=== PATIENT | male | born 1980 | race African-American/Black ===

== ENCOUNTER → 2016-04-04 | Outpatient (CLI) | payer MEDICAID | LOC: RAD 15:56 | PROVIDERS: ATTEND Internal Medicine Geriatric Medicine | DX: M54.16 Radiculopathy, lumbar region (principal) | CPT/HCPCS: 72100 ==

== ENCOUNTER → 2016-04-17 | Outpatient (CLI) | payer MEDICAID ==
[2016-04-17 08:57] LABS: ABSOLUTE EOSINOPHILS # (AUTO) 0.2 10^3/uL (0.0-0.6); ABSOLUTE LYMPHOCYTES (AUTO) 1.2 10^3/uL (0.5-4.7); ABSOLUTE MONOCYTES (AUTO) 0.5 10^3/uL (0.1-1.4); ABSOLUTE NEUT (AUTO) 4.2 10^3/uL (1.7-8.2); BASOPHILS % (AUTO) 0.6 % (0-2); EOSINOPHILS % (AUTO) 3.3 % (0-6); HEMATOCRIT 42.3 % (37.9-51.0); HEMOGLOBIN 13.6 g/dL (13.5-17.0); HGB HCT DIFFERENCE -1.5; LYMPHOCYTES % (AUTO) 19.1 % (13-45); MEAN CORPUSCULAR HGB CONC 32.1 g/dL (32.0-36.0); MEAN CORPUSCULAR VOLUME 78 fl (80-97); MONOCYTES % (AUTO) 8.8 % (3-13); RED BLOOD COUNT 5.44 10^6/uL (4.35-5.55); RED CELL DISTRIBUTION WIDTH 16.3 % (11.5-14.0); SEGMENTED NEUTROPHILS % (AUTO) 68.2 % (42-78); WHITE BLOOD COUNT 6.2 10^3/uL (4.0-10.5)
[2016-04-17 09:16] LABS: ALANINE AMINOTRANSFERASE 85 U/L (21-72); ALBUMIN 4.2 g/dL (3.5-5.0); ALKALINE PHOSPHATASE 106 U/L (38-126); ANION GAP 19 (5-19); ASPARTATE AMINO TRANSFERASE 42 U/L (17-59); BILIRUBIN,TOTAL 0.5 mg/dL (0.2-1.3); BLOOD UREA NITROGEN 21 mg/dL (7-20); CALCIUM 9.8 mg/dL (8.4-10.2); CARBON DIOXIDE 27 mmol/L (22-30); CHLORIDE 104 mmol/L (98-107); CHOLESTEROL 105.79 mg/dL (0-200); CREATININE RESULT 1.18 mg/dL (0.52-1.25); Direct HDL 40 mg/dL (>40); GLUCOSE 95 mg/dL (75-110); POTASSIUM 3.6 mmol/L (3.6-5.0); SODIUM 149.6 mmol/L (137-145); TOTAL PROTEIN 8.5 g/dL (6.3-8.2); TRIGLYCERIDES 59 mg/dL (<150)
[2016-04-17 09:27] LABS: DIRECT LDL 42 mg/dL (<100)
== END ==
LOC: OD 08:04
PROVIDERS: ATTEND Internal Medicine Geriatric Medicine
DX: M54.16 Radiculopathy, lumbar region (principal); I10 Essential (primary) hypertension
CPT/HCPCS: 36415; 72110; 80053; 80061; 85025

== ENCOUNTER → 2016-04-22 | Outpatient (CLI) | payer MEDICAID | LOC: RAD 15:52 | PROVIDERS: ATTEND Internal Medicine Geriatric Medicine | DX: R10.9 Unspecified abdominal pain (principal) | CPT/HCPCS: 74000 ==

== ENCOUNTER 2016-07-01 08:27 | Emergency (ER) | payer BC, MEDICAID ==
--- NOTE | 2016-07-01 09:32 | ER Document Report ---
ED General - General Mode of Arrival: Ambulatory Information source: Patient TRAVEL OUTSIDE OF THE [place] IN LAST 30 DAYS: No - HPI Patient complains to provider of: Congestion Onset: Other - 06/22/2016 Onset/Duration: Gradual, Persistent Associated symptoms: Productive cough, Fever <MEGHNA MARIE - Last Filed: 07/01/16 09:38> <TITO BORDEN - Last Filed: 07/01/16 11:52> - General Chief Complaint: Congestion Stated Complaint: CONGESTION Notes: Patient is a 35-year-old male presenting to the emergency department chief complaint congestion onset, 06/22/2016. Patient states that he went online to Web and talked to a doctor online, who prescribed him Tamiflu. Patient states that his symptoms began to improve, but 06/27/2016 his symptoms started to worsen again and has persisted. Patient complains of chest congestion, cough , nasal congestion, malaise, and subjective fever. Patient has no other complaints at this time. (MEGHNA MARIE) - Related Data Allergies/Adverse Reactions: amoxicillin [Amoxicillin] Allergy (Verified 07/01/16 08:32) nausea vomit hydralazine Adverse Reaction (Verified 07/01/16 08:32) Past Medical History - General Information source: Patient - Social History Smoking Status: Unknown if Ever Smoked Family History: Reviewed & Not Pertinent, CAD, Hypertension Patient has suicidal ideation: No Patient has homicidal ideation: No - Past Medical History Cardiac Medical History: Reports: Hx Congestive Heart Failure, Hx Hypertension Pulmonary Medical History: Reports: Hx Asthma, Hx COPD Renal/ Medical History: Denies: Hx Peritoneal Dialysis Psychiatric Medical History: Denies: Hx Depression - Immunizations Immunizations up to date: Yes Hx Diphtheria, Pertussis, Tetanus Vaccination: Yes <MEGHNA MARIE - Last Filed: 07/01/16 09:38> Review of Systems - Review of Systems Constitutional: See HPI, Fever - subjective, Malaise EENT: See HPI, Nose congestion Cardiovascular: No symptoms reported Respiratory: See HPI, Cough, Sputum - Thick Yellow, Wheezing Gastrointestinal: No symptoms reported Genitourinary: No symptoms reported Male Genitourinary: No symptoms reported Musculoskeletal: No symptoms reported Skin: No symptoms reported Hematologic/Lymphatic: No symptoms reported Neurological/Psychological: No symptoms reported -: Yes All other systems reviewed and negative <MEGHNA MARIE - Last Filed: 07/01/16 09:38> Physical Exam - General General appearance: Appears well, Alert In distress: None - HEENT Head: Normocephalic, Atraumatic Eyes: Normal Pupils: PERRL Nasal: Other - Congested - Respiratory Respiratory status: No respiratory distress Breath sounds: Productive cough - Thick, yellow sputum, Rhonchi, Wheezing - Cardiovascular Rhythm: Regular Heart sounds: Normal auscultation Murmur: No - Abdominal Inspection: Morbidly Obese Tenderness: Nontender - Back Back: Normal, Nontender - Extremities General upper extremity: Normal inspection, Nontender General lower extremity: Normal inspection, Nontender - Neurological Neuro grossly intact: Yes Cognition: Normal Addison Coma Scale Eye Opening: Spontaneous [place] Coma Scale Verbal: Oriented [place]ison Coma Scale Motor: Obeys Commands Addison Coma Scale Total: 15 Speech: Normal - Psychological Associated symptoms: Normal affect, Normal mood - Skin Skin Temperature: Warm Skin Moisture: Dry Skin Color: Normal <MEGHNA MARIE - Last Filed: 07/01/16 09:38> <TITO BORDEN - Last Filed: 07/01/16 11:52> - Vital signs Vitals: Temp Pulse Resp BP Pulse Ox 99.0 F 87 18 154/100 H 100 07/01/16 08:36 07/01/16 08:36 07/01/16 08:36 07/01/16 08:36 07/01/16 08:36 Course - Diagnostic Test Radiology reviewed: Image reviewed, Reports reviewed - Chest x-ray shows cardiomegaly with no other acute process <TITO BORDEN - Last Filed: 07/01/16 11:52> - Vital Signs Vital signs: Temp Pulse Resp BP Pulse Ox 99.3 F 85 20 163/102 H 96 07/01/16 10:55 07/01/16 10:55 07/01/16 10:55 07/01/16 10:55 07/01/16 10:55 Discharge <MEGHNA MARIE - Last Filed: 07/01/16 09:38> <TITO BORDEN - Last Filed: 07/01/16 11:52> - Discharge Clinical Impression: Asthmatic bronchitis with exacerbation Qualifiers: Asthma severity: unspecified severity Qualified Code(s): J45.901 - Unspecified asthma with (acute) exacerbation Condition: Stable Disposition: HOME, SELF-CARE Additional Instructions: Bronchitis with Bronchospasm (Wheezing): You have bronchitis with bronchospasm (wheezing). Sometimes people develop wheezing with a chest cold. This occurs either because of an underlying tendency toward asthma or because the virus itself irritates the bronchial tubes. This irritation causes cough, shortness of breath, and wheezing. Emergency treatment of bronchospasm may include adrenaline shots or bronchodilator aerosol. You may feel lightheaded and have a rapid pulse for an hour or two. Rest and get plenty of fluids. At home, we'll treat you with a bronchodilator inhaler. Corticosteroids may be required for some patients. Until you recover, avoid chemical fumes, dusts, pollens, and exercising in very cold or dry air. If you smoke, stop now! Most cases of bronchitis get better without antibiotics. We prescribe antibiotics when we believe bacteria are damaging your airways, or if there's high risk the bronchitis will worsen into pneumonia. Increase your fluid intake. A cool mist humidifier may make your lungs more comfortable. An expectorant (cough medicine that loosens phlegm) can help. Repeated episodes of bronchitis and bronchospasm may result in lung damage -- for example, chronic bronchitis, recurrent pneumonias, or emphysema. If you develop a fever, increased wheezing, chest pain, or severe shortness of breath, you should contact the doctor immediately. START THE MEDICATIONS PRESCRIBED ON FRIDAY(tomorrow). DRINK PLENTY OF FLUIDS. TAKE ROBITUSSIN-DM FOR COUGH AND TO LOOSEN MUCUS. REST. FOLLOWUP WITH YOUR DOCTOR IF NOT IMPROVING. RETURN TO THE EMERGENCY ROOM IF ANY NEW OR WORSENING SYMPTOMS. Prescriptions: Azithromycin [Zithromax 250 mg Tablet] 250 mg PO DAILY #4 tablet Prednisone [Deltasone 10 mg Tablet] 10 mg PO ASDIR PRN #21 tablet PRN Reason: Forms: Return to Work Referrals: AGUSTÍN REYNOLDS MD [Primary Care Provider] - Follow up as needed Roxannaibangi Attestation: 07/01/16 11:51 I personally performed the services described in the documentation, reviewed and edited the documentation which was dictated to the scribe in my presence, and it accurately records my words and actions. (TITO BORDEN) Scribe Documentation - Scribe Written by Janice:: Meghna Marie 07/01/2016 0931 acting as scribe for :: Frank <MEGHNA MARIE - Last Filed: 07/01/16 09:38>
[2016-07-01] MEDS ORDERED: IPRATROPIUM/ALBUTEROL 0.5-2.5 MG/3 ML AMPUL NEB ONE (09:39)
[2016-07-01] MEDS ORDERED: PREDNISONE 20 MG TABLET PO ONE (09:39)
[2016-07-01] MEDS ORDERED: AZITHROMYCIN 250 MG TABLET PO ONE (10:42)
[2016-07-01] MEDS ORDERED: ALBUTEROL SULFATE 0.083% NEB 2.5 MG/3 ML AMPUL NEB ONE (10:42)
[2016-07-01 10:57] VITALS: BP 163/102
== END 2016-07-01 12:00 | disposition home or self-care (01) ==
LOC: ER 08:27
DX: J45.901 Unspecified asthma with (acute) exacerbation (principal); R09.81 Nasal congestion; R05 Cough; R53.81 Other malaise; R50.9 Fever, unspecified
CPT/HCPCS: 94640 ×2; 99283; 87070; 87205; 87077; 71020; J7512; J7620

== ENCOUNTER → 2016-09-12 | Outpatient (CLI) | payer BC ==
[2016-09-12 08:37] LABS: ANION GAP 14 (5-19); BLOOD UREA NITROGEN 13 mg/dL (7-20); CALCIUM 9.5 mg/dL (8.4-10.2); CARBON DIOXIDE 28 mmol/L (22-30); CHLORIDE 103 mmol/L (98-107); GLUCOSE 93 mg/dL (75-110); POTASSIUM 3.8 mmol/L (3.6-5.0); SODIUM 145.2 mmol/L (137-145)
== END ==
LOC: OD 07:23
PROVIDERS: ATTEND Internal Medicine Geriatric Medicine
DX: I10 Essential (primary) hypertension (principal)
CPT/HCPCS: 36415; 80048

== ENCOUNTER → 2017-01-13 | Outpatient (CLI) | payer BC ==
[2017-01-13 09:30] LABS: SA NONMOTILE COUNT1 0; SA NONMOTILE COUNT2 0; SA STRAIGHT MOTILITY CNT 1 0; SA STRAIGHT MOTILITY CNT 2 0
[2017-01-13 09:31] LABS: ROUND CELL CONC. 0.2 X10^6/mL (<5.1); SA DILUTION CNT 1 0; SA DILUTION CNT 2 0; SA DILUTION FACTOR 1; SA ROUND CELL COUNT1 1; SA ROUND CELL COUNT2 3
[2017-01-14 06:39] LABS: FOLLICLE STIMULATING HORMONE 9.9 mIU/mL (1.5-12.4); LUTEINIZING HORMONE 7.4 mIU/mL (1.7-8.6)
[2017-01-14 08:12] LABS: PROLACTIN 7.9 ng/mL (4.0-15.2)
[2017-01-15 11:59] LABS: TESTOSTERONE FREE (DIRECT) 3.3 pg/mL (8.7-25.1)
== END ==
LOC: LAB 08:35
PROVIDERS: ATTEND Urology
DX: N46.9 Male infertility, unspecified (principal); N50.0 Atrophy of testis
CPT/HCPCS: 36415; 83001; 83002; 84146; 84402; 84403; 89321

== ENCOUNTER → 2017-02-05 | Outpatient (CLI) | payer BC ==
[2017-02-05 08:31] LABS: ABSOLUTE EOSINOPHILS # (AUTO) 0.2 10^3/uL (0.0-0.6); ABSOLUTE LYMPHOCYTES (AUTO) 1.7 10^3/uL (0.5-4.7); ABSOLUTE MONOCYTES (AUTO) 0.4 10^3/uL (0.1-1.4); ABSOLUTE NEUT (AUTO) 3.9 10^3/uL (1.7-8.2); BASOPHILS % (AUTO) 0.4 % (0-2); EOSINOPHILS % (AUTO) 3.5 % (0-6); HEMATOCRIT 37.8 % (37.9-51.0); HEMOGLOBIN 12.5 g/dL (13.5-17.0); HGB HCT DIFFERENCE -0.3; LYMPHOCYTES % (AUTO) 27.3 % (13-45); MEAN CORPUSCULAR HEMOGLOBIN 26.1 pg (27.0-33.4); MEAN CORPUSCULAR HGB CONC 33.2 g/dL (32.0-36.0); MEAN CORPUSCULAR VOLUME 78 fl (80-97); MONOCYTES % (AUTO) 6.4 % (3-13); RED BLOOD COUNT 4.82 10^6/uL (4.35-5.55); RED CELL DISTRIBUTION WIDTH 16.7 % (11.5-14.0); SEGMENTED NEUTROPHILS % (AUTO) 62.4 % (42-78); WHITE BLOOD COUNT 6.2 10^3/uL (4.0-10.5)
[2017-02-05 08:33] LABS: ANION GAP 14 (5-19); BLOOD UREA NITROGEN 14 mg/dL (7-20); CARBON DIOXIDE 27 mmol/L (22-30); CHLORIDE 105 mmol/L (98-107); CHOLESTEROL 96.08 mg/dL (0-200); CREATININE RESULT 0.98 mg/dL (0.52-1.25); Direct HDL 45 mg/dL (>40); GLUCOSE 95 mg/dL (75-110); POTASSIUM 3.9 mmol/L (3.6-5.0); SODIUM 145.8 mmol/L (137-145); TRIGLYCERIDES 49 mg/dL (<150)
[2017-02-05 08:44] LABS: DIRECT LDL 37 mg/dL (<100)
== END ==
LOC: LAB 08:16
PROVIDERS: ATTEND Internal Medicine Geriatric Medicine
DX: Z00.00 Encounter for general adult medical examination without abnormal findings (principal)
CPT/HCPCS: 36415; 80048; 80061; 85025

== ENCOUNTER 2017-06-12 01:04 | Emergency (ER) | payer BC ==
[2017-06-12] MEDS ORDERED: CLINDAMYCIN HCL 150 MG CAPSULE PO ONE (01:31)
[2017-06-12] MEDS ORDERED: HYDROCODONE/ACETAMINOPHEN 5-325 MG (6 TAB/ER DISP) PO PRN (01:32)
[2017-06-12] MEDS ORDERED: IBUPROFEN 800 MG TABLET PO ONE (01:32)
--- NOTE | 2017-06-12 01:37 | ER Document Report ---
HPI - HPI Patient complains to provider of: Dental pain Pain Level: 5 Context: Patient is a 36 year old male that comes to the ED for chief complaint of dental pain. Pain is in the left lower jaw, pain started yesterday and is worsening. He denies swelling. He states that he was evaluated by dentist, he has a appointment already set up in about 2 weeks to have this repaired, states he was taking antibiotics but ran out and then symptoms returned. He denies difficulty swallowing, neck pain, fever. - CONSTITUTIONAL Constitutional: DENIES: Fever, Chills - EENT EENT: REPORTS: Ear Pain - l ear. DENIES: Sore Throat, Eye problems - NEURO Neurology: REPORTS: Headache. DENIES: Weakness, Vision blurred, Dizzinesss / Vertigo - CARDIOVASCULAR Cardiovascular: DENIES: Chest pain - RESPIRATORY Respiratory: DENIES: Trouble Breathing, Coughing - GASTROINTESTINAL Gastrointestinal: DENIES: Abdominal Pain, Black / Bloody Stools - URINARY Urinary: DENIES: Dysuria, Urgency, Frequency - MUSCULOSKELETAL Musculoskeletal: DENIES: Extremity pain Past Medical History - General Information source: Patient - Social History Smoking Status: Former Smoker Chew tobacco use (# tins/day): No Frequency of alcohol use: None Drug Abuse: None Lives with: Family Family History: Reviewed & Not Pertinent, CAD, Hypertension Patient has suicidal ideation: No Patient has homicidal ideation: No - Past Medical History Cardiac Medical History: Reports: Hx Congestive Heart Failure, Hx Hypertension Pulmonary Medical History: Reports: Hx Asthma, Hx COPD Renal/ Medical History: Denies: Hx Peritoneal Dialysis Psychiatric Medical History: Denies: Hx Depression Surgical Hx: Negative - Immunizations Immunizations up to date: Yes Hx Diphtheria, Pertussis, Tetanus Vaccination: Yes Vertical Provider Document - CONSTITUTIONAL General Appearance: WD/WN, No Apparent Distress - INFECTION CONTROL TRAVEL OUTSIDE OF THE [place] IN LAST 30 DAYS: No - HEENT HEENT: Atraumatic, Normocephalic Mouth Diagram: 1 - Dental fracture, no surrounding swelling, induration, fluctuance, or other abnormality noted - NECK Neck: Normal Inspection - RESPIRATORY Respiratory: Breath Sounds Normal, No Respiratory Distress O2 Sat by Pulse Oximetry: 99 - CARDIOVASCULAR Cardiovascular: Regular Rate, Regular Rhythm - GI/ABDOMEN Gastrointestinal: Abdomen Soft, Abdomen Non-Tender - NEURO Level of Consciousness: Awake, Alert, Appropriate - DERM Integumentary: Warm, Dry, No Rash Course - Re-evaluation Re-evalutation: Patient hypertensive, in pain. Offered him a dental block but he declined. Providing the clindamycin, to go medicine, patient already has good dental follow-up. Discussed return precautions. No evidence of Navarro's angina or abscess at this time. Patient states satisfaction and agreement. - Vital Signs Vital signs: Temp Pulse Resp BP Pulse Ox 98.8 F 88 22 H 178/102 H 99 06/12/17 01:08 06/12/17 01:08 06/12/17 01:08 06/12/17 01:08 06/12/17 01:08 Discharge - Discharge Clinical Impression: Pain, dental Condition: Stable Disposition: HOME, SELF-CARE Additional Instructions: Your examination is consistent with a dental infection. Take antibiotic as prescribed. Follow closely with your dentist for additional evaluation and management or this will continue to happen. Return if you worsen including facial swelling or any other concerning symptoms. Prescriptions: Clindamycin HCl [Cleocin 150 mg Capsule] 150 mg PO Q6 #56 capsule Forms: Elevated Blood Pressure
[2017-06-12 02:04] VITALS: BP 176/98
== END 2017-06-12 02:00 | disposition home or self-care (01) ==
LOC: ER 01:04
DX: K08.89 Other specified disorders of teeth and supporting structures (principal); H92.02 Otalgia, left ear; R51 Headache; I10 Essential (primary) hypertension; J44.9 Chronic obstructive pulmonary disease, unspecified; Z87.891 Personal history of nicotine dependence
CPT/HCPCS: 99282

== ENCOUNTER 2017-06-27 07:10 | Emergency (ER) | payer BC ==
[2017-06-27] MEDS ORDERED: HYDROCODONE/ACETAMINOPHEN 5-325 MG TABLET PO ONE (07:52)
--- NOTE | 2017-06-27 08:45 | RADIOLOGY REPORT (SQ) ---
EXAM DESCRIPTION: SHOULDER RIGHT 2 OR MORE VIEWS COMPLETED DATE/TIME: 06/27/2017 8:13 am REASON FOR STUDY: right shoulder sharp pain, n/t right hand, no inju COMPARISON: None. NUMBER OF VIEWS: Three views. TECHNIQUE: Internal rotation, external rotation, and Y view images acquired of the right shoulder. LIMITATIONS: None. FINDINGS: MINERALIZATION: Normal. BONES: No acute fracture or dislocation. No worrisome bone lesions. JOINTS: No glenohumeral dislocation. No acromioclavicular joint widening or bony spurring VISUALIZED LUNGS AND RIBS: No pneumothorax. No rib fracture. 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 OTHER: No other significant finding. IMPRESSION: NEGATIVE STUDY OF THE RIGHT SHOULDER. NO RADIOGRAPHIC EVIDENCE OF ACUTE INJURY. TECHNICAL DOCUMENTATION: JOB ID: [id number] [employer]- All Rights Reserved Reading location - IP/workstation name: [email or web address]
--- NOTE | 2017-06-27 08:49 | ER Document Report ---
ED Extremity Problem, Upper - General Chief Complaint: Arm Pain Stated Complaint: RIGHT ARM PAIN Time Seen by Provider: 06/27/17 07:44 Mode of Arrival: Ambulatory Information source: Patient Notes: Patient is a 36-year-old male who presents to the ER today for right shoulder pain 2 weeks, patient states that it did get better and then come back again yesterday. Patient describes it as a sharp pain that hurts worse with movement. He denies any injury. He does state that since yesterday he has had some numbness and tingling to his right hand. Patient denies any history of issues with the shoulder. TRAVEL OUTSIDE OF THE [place] IN LAST 30 DAYS: No - Related Data Allergies/Adverse Reactions: amoxicillin [Amoxicillin] Allergy (Verified 06/27/17 07:24) nausea vomit hydralazine Adverse Reaction (Verified 06/27/17 07:24) Past Medical History - General Information source: Patient - Social History Smoking Status: Never Smoker Chew tobacco use (# tins/day): No Frequency of alcohol use: None Drug Abuse: None Family History: Reviewed & Not Pertinent, CAD, Hypertension Patient has suicidal ideation: No Patient has homicidal ideation: No - Past Medical History Cardiac Medical History: Reports: Hx Congestive Heart Failure, Hx Hypertension Pulmonary Medical History: Reports: Hx Asthma, Hx COPD Renal/ Medical History: Denies: Hx Peritoneal Dialysis Psychiatric Medical History: Denies: Hx Depression - Immunizations Immunizations up to date: Yes Hx Diphtheria, Pertussis, Tetanus Vaccination: Yes Review of Systems - Review of Systems Constitutional: No symptoms reported EENT: No symptoms reported Cardiovascular: No symptoms reported Respiratory: No symptoms reported Gastrointestinal: No symptoms reported Genitourinary: No symptoms reported Male Genitourinary: No symptoms reported Musculoskeletal: See HPI Skin: No symptoms reported Hematologic/Lymphatic: No symptoms reported Neurological/Psychological: See HPI Physical Exam - Vital signs Vitals: Temp Pulse Resp BP Pulse Ox 98.5 F 74 16 131/89 H 96 06/27/17 07:25 06/27/17 07:25 06/27/17 07:25 06/27/17 07:25 06/27/17 07:25 - Notes Notes: PHYSICAL EXAMINATION: GENERAL: Well-appearing and in no acute distress. HEAD: Atraumatic, normocephalic. EYES: Pupils equal round and reactive to light, extraocular movements intact, sclera anicteric, conjunctiva are normal. ENT: ear canals without erythema or foreign body, TMs pearly neil with good bony landmarks, nares patent, oropharynx clear without exudates. Moist mucous membranes. NECK: Normal range of motion, supple without lymphadenopathy LUNGS: CTAB and equal. No wheezes rales or rhonchi. HEART: Regular rate and rhythm without murmurs ABDOMEN: Soft, no tenderness. No guarding, no rebound BACK: no vertebral tenderness, normal ROM GI/: no CVA tenderness EXTREMITIES: No tenderness to shoulder at all, pain with flexion and abduction at 90 actively, no pain with passive flexion or abduction, normal range of motion, no pitting edema. No cyanosis. NEUROLOGICAL: Cranial nerves grossly intact. Normal sensory/motor exams. PSYCH: Normal mood, normal affect. SKIN: Warm, Dry, normal turgor, no rashes or lesions noted Course - Re-evaluation Re-evalutation: 06/27/17 08:47 X-ray negative for any acute pathology, patient be placed in a sling and given orthopedic information to follow-up with for possible MRI. - Vital Signs Vital signs: Temp Pulse Resp BP Pulse Ox 98.5 F 74 16 131/89 H 96 06/27/17 07:25 06/27/17 07:25 06/27/17 07:25 06/27/17 07:25 06/27/17 07:25 Discharge - Discharge Clinical Impression: Right shoulder pain Qualifiers: Chronicity: acute Qualified Code(s): M25.511 - Pain in right shoulder Condition: Stable Disposition: HOME, SELF-CARE Additional Instructions: Return immediately for any new or worsening symptoms. Follow up with orthopedic doctor, call tomorrow to make followup appointment. Prescriptions: Cyclobenzaprine HCl [Flexeril 10 mg Tablet] 10 mg PO TIDP PRN #15 tab PRN Reason: Methylprednisolone [Medrol Dosepack (4 mg/Tab) 21 Tab/Dosepak] 4 mg PO ASDIR PRN #21 tab.ds.pk PRN Reason: Forms: Return to Work Referrals: AGUSTÍN REYNOLDS MD [Primary Care Provider] - Follow up as needed NARINDER ORDAZ DO [ACTIVE STAFF] - Follow up as needed
[2017-06-27 09:04] VITALS: BP 120/79
== END 2017-06-27 09:36 | disposition home or self-care (01) ==
LOC: ER 07:10
DX: M25.511 Pain in right shoulder (principal); M79.601 Pain in right arm; R20.0 Anesthesia of skin; I10 Essential (primary) hypertension; J44.9 Chronic obstructive pulmonary disease, unspecified
CPT/HCPCS: 99283

== ENCOUNTER 2017-09-05 18:14 | Emergency (ER) | payer SELFPAY ==
[2017-09-05 18:32] VITALS: BP 177/98
[2017-09-05] MEDS ORDERED: CLINDAMYCIN HCL 150 MG CAPSULE PO ONE (18:39)
[2017-09-05] MEDS ORDERED: LIDOCAINE 2% VISCOUS SOLN 20 ML UDCUP PO ONE (18:39)
--- NOTE | 2017-09-05 18:46 | ER Document Report ---
ED Oral Problem - General Chief Complaint: Mouth Problem Stated Complaint: MOUTH PAIN Time Seen by Provider: 09/05/17 18:30 Mode of Arrival: Ambulatory Information source: Patient Notes: Very morbidly obese 36-year-old male presented ED for complaint of right-sided mouth pain for the last week. He states he came in here last month he got antibiotics and medications for his dental pain and was not able to get to a dentist since he was here last month. He states the wisdom teeth on the right top and bottom have been hurting and breaking apart. Patient is alert and oriented, pupils equal and react to light, speaking in full sentences, respirations regular and unlabored, and walk with a even steady gait. TRAVEL OUTSIDE OF THE [place] IN LAST 30 DAYS: No - HPI Patient complains to provider of: Toothache Onset: Last week - States he has had the same pain at least 4 months but it got better and then started back again last week Quality of pain: Sharp Severity: Moderate Pain Level: 4 Associated symptoms: Dental decay, Toothache Worsened by: Cold Relieved by: Nothing Similar symptoms previously: Yes Recently seen / treated by doctor/dentist: Yes - Related Data Allergies/Adverse Reactions: amoxicillin [Amoxicillin] Allergy (Verified 09/05/17 18:15) nausea vomit hydralazine Adverse Reaction (Verified 09/05/17 18:15) Past Medical History - General Information source: Patient - Social History Smoking Status: Never Smoker Cigarette use (# per day): No Chew tobacco use (# tins/day): No Smoking Education Provided: No Frequency of alcohol use: None Drug Abuse: None Occupation: Self-employed telephone [employer] Family History: CAD, Hypertension. denies: Arthritis, COPD, CVA, DM, Hyperlipidemia, Malignancy, Thyroid Disfunction Patient has suicidal ideation: No Patient has homicidal ideation: No - Medical History Medical History: Other - Gynecomastia - Past Medical History Cardiac Medical History: Reports: Hx Congestive Heart Failure, Hx Hypertension Pulmonary Medical History: Reports: Hx Asthma, Hx COPD EENT Medical History: Reports: None Neurological Medical History: Reports: None Endocrine Medical History: Reports: None Renal/ Medical History: Reports: None Malignancy Medical History: Reports None GI Medical History: Reports: None Musculoskeltal Medical History: Reports None Skin Medical History: Reports None Psychiatric Medical History: Reports: None Traumatic Medical History: Reports: None Infectious Medical History: Reports: None Past Surgical History: Reports: Other - Breast reduction from gynecomastia - Immunizations Immunizations up to date: Yes Hx Diphtheria, Pertussis, Tetanus Vaccination: Yes Review of Systems - Review of Systems Constitutional: No symptoms reported EENT: Mouth pain, Dental problem. denies: Mouth swelling Cardiovascular: No symptoms reported Respiratory: No symptoms reported Gastrointestinal: No symptoms reported Genitourinary: No symptoms reported Male Genitourinary: No symptoms reported Musculoskeletal: No symptoms reported Skin: No symptoms reported Hematologic/Lymphatic: No symptoms reported Neurological/Psychological: No symptoms reported -: Yes All other systems reviewed and negative Physical Exam - Vital signs Vitals: Temp Pulse Resp BP Pulse Ox 99.2 F 69 20 177/98 H 97 09/05/17 18:27 09/05/17 18:27 09/05/17 18:27 09/05/17 18:27 09/05/17 18:27 Interpretation: Normal - General General appearance: Appears well, Alert - HEENT Head: Normocephalic, Atraumatic Eyes: Normal Pupils: PERRL Ears: Normal External canal: Normal Tympanic membrane: Normal Sinus: Normal Nasal: Normal Mouth/Lips: Caries Teeth diagram: 1 - Tender to touch redness surrounding both teeth Pharynx: Normal Neck: Anterior cervical chain - Respiratory Respiratory status: No respiratory distress Chest status: Nontender Breath sounds: Normal Chest palpation: Normal - Cardiovascular Rhythm: Regular Heart sounds: Normal auscultation Murmur: No - Abdominal Inspection: Normal Distension: No distension Bowel sounds: Normal Tenderness: Nontender Organomegaly: No organomegaly - Back Back: Normal, Nontender - Extremities General upper extremity: Normal inspection, Nontender, Normal color, Normal ROM , Normal temperature General lower extremity: Normal inspection, Nontender, Normal color, Normal ROM , Normal temperature, Normal weight bearing. No: Jaime's sign - Neurological Neuro grossly intact: Yes Cognition: Normal Orientation: AAOx4 Hope Coma Scale Eye Opening: Spontaneous Hope Coma Scale Verbal: Oriented Hope Coma Scale Motor: Obeys Commands Addison Coma Scale Total: 15 Speech: Normal Motor strength normal: LUE, RUE, LLE, RLE Sensory: Normal - Psychological Associated symptoms: Normal affect, Normal mood - Skin Skin Temperature: Warm Skin Moisture: Dry Skin Color: Normal Course - Re-evaluation Re-evalutation: 09/05/17 21:28 Patient was treated with clindamycin in the emergency room given viscous lidocaine to use on the teeth and instructed to follow-up with an oral surgeon. After performing a Medical Screening Examination, I estimate there is LOW risk for a DEEP SPACE INFECTION (e.g., SHAHID'S ANGINA OR RETROPHARYNGEAL ABSCESS), MENINGITIS, INTRACRANIAL HEMORRHAGE, or AIRWAY COMPROMISE, thus I consider the discharge disposition reasonable. Also, there is no evidence or peritonitis, sepsis, or toxicity. I have reevaluated this patient multiple times and no significant life threatening changes are noted. The patient and I have discussed the diagnosis and risks, and we agree with discharging home with close follow-up with the understanding that symptoms and presentations can change. We also discussed returning to the Emergency Department immediately if new or worsening symptoms occur. We have discussed the symptoms which are most concerning (e.g., changing or worsening pain, trouble swallowing or breathing, neck stiffness or fever) that necessitate immediate return. - Vital Signs Vital signs: Temp Pulse Resp BP Pulse Ox 99.2 F 69 20 177/98 H 97 09/05/17 18:27 09/05/17 18:27 09/05/17 18:27 09/05/17 18:27 09/05/17 18:27 Discharge - Discharge Clinical Impression: Pain due to dental caries Condition: Stable Disposition: HOME, SELF-CARE Additional Instructions: TOOTHACHE: Your pain is due to dental decay. The tooth must be repaired in order for you to feel better. You will, therefore, be referred to a dentist. We do not have dentists on the staff at [facility]. Severe swelling or drainage around a tooth usually means a dental abscess. This also requires evaluation and treatment by the dentist, but antibiotics may be prescribed while awaiting dental treatment. You should be rechecked immediately if you develop major swelling of the face, increasing pain, a lump in the jaw or gums, headache, difficulty swallowing, or fever. CLINDAMYCIN: You have been given a prescription for the antibiotic clindamycin. It is often prescribed for infections in the mouth, such as dental infections or abscesses, and for skin infections due to MRSA. It's important that you take all the medication, unless instructed otherwise by your physician. Failure to complete the entire course can result in relapse of your condition. Common side effects of antibiotics include nausea, intestinal cramping, or diarrhea. Women may develop vaginal yeast infections, and babies can get yeast (thrush) in the mouth following the use of antibiotics. Contact your physician if you develop significant side effects from this medication. Allergy to this antibiotic can result in hives, wheezing, faintness, or itching. If symptoms of allergy occur, stop the medication and call the doctor. Use Tylenol for your pain and I you have also been given a syringe of viscous lidocaine to use for your dental pain. You could put a small amount of this on your finger and place it on your gums and tooth where it is painful. Remember this will numb your gums so please do not to your cheeks or your tongue. You can do this every 1-2 hours as needed for pain. It is very important that you follow-up with an oral surgeon do not delay as repeated antibiotics are not good for you you just need to get the tooth treated. FOLLOW-UP CARE: You have been referred for follow-up care to the dentists listed below. Call the dentists office for an appointment as you were instructed or within the next two days. If you experience worsening or a significant change in your symptoms, notify the physician immediately or return to the Emergency Department at any time for re-evaluation. [facility] [address] [place], [place] [facility] [address] [place] [address] [facility] [address] [facility] [address] [facility] [address] [facility] [place] [address] [facility]. [email or web address] [facility] [address] [place] [address] Friday- 8:00am to 5:00 pm Will see patients from other [facility]. Charges based on income and family size and accepts Medicare, Medicaid, and Insurances Will pull molars [facility] [address] Hours of Operation 8:00 am - 4:30 pm weekdays The following dental offices accept Medicaid: [facility] Dr[address] [place] Dr. Morales Dr. Preciado Joe Pedraza, Rodney, and Theron oral surgery Dr. Trujillo ([place]) Dr. Varghese ([place]) [facility] Drs. French ([place]) Dr. Paez ([place]) [facility] Dr. Ireland ([place]) Drs. La and ([place]) Medicaid Care Line Prescriptions: Clindamycin HCl 300 mg PO Q6 #28 capsule Forms: Elevated Blood Pressure Referrals: AGUSTÍN REYNOLDS MD [Primary Care Provider] - Follow up as needed MILTON JIMENEZ DDS [ACTIVE STAFF] - Follow up as needed
== END 2017-09-05 18:55 | disposition home or self-care (01) ==
LOC: ER 18:14
DX: K02.9 Dental caries, unspecified (principal); I11.0 Hypertensive heart disease with heart failure; I50.9 Heart failure, unspecified; J44.9 Chronic obstructive pulmonary disease, unspecified
CPT/HCPCS: 99282; J3490